=== PATIENT | female | born 1935 | race Caucasian/White ===

== ENCOUNTER 2017-12-03 12:43 | Inpatient (IN) | payer MEDICARE ==
[~2017-12-03] VITALS: Ht 152.4 cm; Wt 64.8 kg
--- NOTE | ~2017-12-03 | EC ---
PATIENT:HUNTER BURTON DATE OF SERVICE: 12/05/17 SEX: F MEDICAL RECORD: [id number] DATE OF : 35 LOCATION:D.M2 D.212 AGE OF PATIENT: 82 ADMISSION DATE: 12/05/17 REFERRING PHYSICIAN: INTERPRETING PHYSICIAN: CARMINA FERREIRA MD ECHOCARDIOGRAM REPORT ECHO CHARGES 4 ECHO COMPLETE Date: 12/05 CLINICAL DIAGNOSIS: HTN ECHOCARDIOGRAPHIC MEASUREMENTS (adult normal given) AC root (d.<3.7cm) 2.2 cm LV Septum d (<1.2 cm> 2.3 cm Valve Excursion 1.5 cm LV Septum (systole) 2.7 cm Left Atria (s.<4.0cm> 4.1 cm LVPW d(<1.2cm) 2.2 cm RV (d.<2.3cm) 3.6 cm LVPW (sytole) 2.3 cm LV diastole(<5.6CM) 3.2 cm MV E-F(>70mm/sec) cm LV systole 2.2 cm LVOT Diameter 1.2 cm MV exc.(>10mm) 1.6 cm Est.ejection fraction (50-75%) % DOPPLER: LVIT cm/sec A 109 cm/sec E 47.0 cm/sec LA cm/sec RVSP 24 mmHg LVOT 126 cm/sec AOP1/2T m/s Asc. Ao 352 cm/sec RVOT 108 cm/sec RA cm/sec PA 126 cm/sec AV Gradient Peak 49.52mmHg AV Mean 31.08mmHg AV Area 0.4 cm MV Gradient Peak 5.94 mmHg MV Mean 2.26 mmHg MV Area cm COMMENTS: Bmx Rider: Jaqueline TENORIO Motor Vehicle Emissions Inspector: 1 Dr. Ferreira TAPE# PACS Pericardial Effusion Y DATE OF SERVICE: PROCEDURE: Echocardiogram. FINDINGS: 1. Left ventricular chamber size is within normal limits. Left ventricular systolic function is normal. Overall ejection fraction estimated at 60%. 2. Left atrium, right atrium, and right ventricular chamber sizes are within normal limits. 3. Valvular structures have normal structure and motion. ECHOCARDIOGRAM REPORT [id number] HUNTER BURTON 4. Doppler interrogation reveals trace to mild mitral regurgitation, trace to mild tricuspid regurgitation, no other valvular insufficiency or stenosis. Pulmonary systolic pressure is normal estimated at 24 mmHg. 5. No evidence of pericardial effusion or left ventricular thrombus. TRANSINT:[id number] Voice Confirmation ID: [id number] DOCUMENT ID: [id number] CARMINA FERREIRA MD at 0851 CC: [id number] DICTATION DATE: 12/09/17 1053 FIRE PRODUCTION OPERATOR: 12/09/17 1143 DIS IN 12/08/17 [facility] [address] [id number]
[2017-12-03 13:44] LABS: BASOPHILS 0.6 % (0-2); HEMATOCRIT 37.5 % (36.0-48.0); IMMATURE GRANULOCYTES 0.4 % (0-5); LYMPHOCYTES 25.9 % (15-50); MCH 34.2 pg (26.0-34.0); MCV 106.8 fL (80.0-100.0); MEAN PLATELET VOLUME 10.8 fL (7.4-10.4); MONOCYTES 11.3 % (2-11); NEUTROPHILS 60.8 % (40-80); PLATELET COUNT 115 10x3/uL (130-400); RBC 3.51 10x6/uL (4.00-5.40); RDW 13.5 % (11.5-14.5); WBC 4.9 10x3/uL (4.8-10.8)
[2017-12-03 14:11] LABS: ALBUMIN 2.8 g/dL (3.4-5.0); ALKALINE PHOSPHATASE 55 U/L (46-116); ALT (SGPT) 20 U/L (10-68); BILIRUBIN - TOTAL 0.47 mg/dL (0.2-1.3); CALC OSMOLALITY 283 mosm/kg (275-300); CARBON DIOXIDE 25.1 mmol/L (21.0-32.0); CHLORIDE - SERUM 105 mmol/L (98-107); CREATININE - SERUM 0.7 mg/dL (0.6-1.3); GLUCOSE 112 mg/dL (74-106); POTASSIUM - SERUM 3.6 mmol/L (3.5-5.1); PROTEIN - SERUM 6.5 g/dL (6.4-8.2); SODIUM 141 mmol/L (136-145); UREA NITROGEN 18 mg/dL (7-18); eGFR NON AFRICAN AMERICAN 85 mL/min (90-120)
[2017-12-03 14:24] LABS: CKMB 0.4 U/L (0.0-3.6); CREATINE KINASE 42 UL (21-215); TROPONIN-I 0.048 ng/mL (0.000-0.060)
[2017-12-03 15:09] LABS: APPEARANCE CLEAR (CLEAR); BILIRUBIN NEGATIVE (NEGATIVE); COLOR YELLOW (YELLOW); GLUCOSE NEGATIVE (NEGATIVE); KETONE NEGATIVE (NEGATIVE); NITRITE NEGATIVE (NEGATIVE); PROTEIN NEGATIVE (NEGATIVE); SPECIFIC GRAVITY 1.025 (1.005-1.020)
[2017-12-03 17:38] LABS: CKMB 0.4 U/L (0.0-3.6); CREATINE KINASE 41 UL (21-215); TROPONIN-I 0.054 ng/mL (0.000-0.060)
[2017-12-04] VITALS (8 sets, daily range): BP systolic 127–155; BP diastolic 52–76; Ht 152.4 cm; Wt 64.8 kg
[2017-12-04] MEDS ORDERED: TRAZODONE HCL50 MG PO (05:14)
[2017-12-04] MEDS ORDERED: CELEXA10 MG PO (05:14)
[2017-12-04] MEDS ORDERED: LEVOTHYROXINE75 MCG PO (05:14)
[2017-12-04] MEDS ORDERED: PRAVACHOL40 MG PO (05:15)
[2017-12-04] MEDS ORDERED: DEPAKOTE SPRIN125 MG PO (05:15)
[2017-12-04] MEDS ORDERED: METFORMIN HCL500 M1 PO (05:15)
[2017-12-04] MEDS ORDERED: BENICAR20 MG PO (05:15)
[2017-12-04 05:16] LABS: BASOPHILS 0.2 % (0-2); EOSINOPHILS 0 % (0-7); HEMATOCRIT 36.5 % (36.0-48.0); HEMOGLOBIN 11.9 g/dL (12-16); IMMATURE GRANULOCYTES 0.2 % (0-5); LYMPHOCYTES 13.7 % (15-50); MCH 33.9 pg (26.0-34.0); MCHC 32.6 g/dL (31.0-37.0); MONOCYTES 10.7 % (2-11); NEUTROPHILS 75.2 % (40-80); RBC 3.51 10x6/uL (4.00-5.40); RDW 13.1 % (11.5-14.5)
[2017-12-04] MEDS ORDERED: TRILIPIX135 MG PO (05:16)
[2017-12-04] MEDS ORDERED: ASPIRIN325 MG PO (05:16)
[2017-12-04] MEDS ORDERED: SENNA LAXATIVE8.6 MG PO (05:17)
[2017-12-04] MEDS ORDERED: CRANBERRY 400 M1 TA1 PO (05:17)
[2017-12-04 05:18] LABS: PLATELET COUNT 139 10x3/uL (130-400)
[2017-12-04] MEDS ORDERED: MULTI-DAY VITAM1 TAB PO (05:18)
[2017-12-04] MEDS ORDERED: ACETAMINOPHEN500 M1 PO (05:19)
[2017-12-04] MEDS ORDERED: MYLANTA / MAALO30 ML PO (05:19)
[2017-12-04] MEDS ORDERED: MILK OF MAGNESI30 ML PO (05:20)
[2017-12-04] MEDS ORDERED: DULCOLAX5 MG PO (05:21)
[2017-12-04] MEDS ORDERED: TYLENOL650 MG RC (05:22)
[2017-12-04 05:54] LABS: CALC OSMOLALITY 281 mosm/kg (275-300); CALCIUM 8.9 mg/dL (8.5-10.1); CARBON DIOXIDE 23.6 mmol/L (21.0-32.0); CHLORIDE - SERUM 105 mmol/L (98-107); CKMB 1.1 U/L (0.0-3.6); GLUCOSE 149 mg/dL (74-106); POTASSIUM - SERUM 3.2 mmol/L (3.5-5.1); SODIUM 139 mmol/L (136-145); UREA NITROGEN 15 mg/dL (7-18)
[2017-12-04 06:19] LABS: CREATINE KINASE 340 UL (21-215); CREATININE - SERUM 0.9 mg/dL (0.6-1.3); eGFR NON AFRICAN AMERICAN 63 mL/min (90-120)
[2017-12-04 06:22] LABS: TROPONIN-I 0.139 ng/mL (0.000-0.060)
[2017-12-04 17:41] LABS: CKMB 1.2 U/L (0.0-3.6); CREATINE KINASE 636 UL (21-215); TROPONIN-I 0.213 ng/mL (0.000-0.060)
[2017-12-04 23:45] LABS: CKMB 1.2 U/L (0.0-3.6); CREATINE KINASE 532 UL (21-215)
[2017-12-04 23:46] LABS: TROPONIN-I 0.221 ng/mL (0.000-0.060)
[2017-12-05 04:00] VITALS: BP 171/77
[2017-12-05 05:04] LABS: BASOPHILS 0.9 % (0-2); EOSINOPHILS 0.4 % (0-7); HEMATOCRIT 38.1 % (36.0-48.0); HEMOGLOBIN 12.4 g/dL (12-16); IMMATURE GRANULOCYTES 0.2 % (0-5); LYMPHOCYTES 29.5 % (15-50); MCH 34.1 pg (26.0-34.0); MCHC 32.5 g/dL (31.0-37.0); MCV 104.7 fL (80.0-100.0); MEAN PLATELET VOLUME 10.8 fL (7.4-10.4); MONOCYTES 17.5 % (2-11); NEUTROPHILS 51.5 % (40-80); PLATELET COUNT 143 10x3/uL (130-400); RBC 3.64 10x6/uL (4.00-5.40); RDW 13.4 % (11.5-14.5); WBC 4.6 10x3/uL (4.8-10.8)
[2017-12-05 05:41] LABS: CARBON DIOXIDE 24.2 mmol/L (21.0-32.0); CHLORIDE - SERUM 106 mmol/L (98-107); CHOL - HDL RATIO 4.9 ratio (2.3-4.1); CHOLESTEROL, TOTAL 68 mg/dL (0-200); CREATINE KINASE 408 UL (21-215); CREATININE - SERUM 0.9 mg/dL (0.6-1.3); GLUCOSE 129 mg/dL (74-106); HDL CHOLESTEROL 14 mg/dL (32-96); LDL CHOLESTEROL 27 mg/dL (0-100); LDL-HDL RATIO 1.9 ratio (1.5-3.5); SODIUM 142 mmol/L (136-145); THYROID STIMULATING HORMONE 6.28 uIU/mL (0.36-3.74); TRIGLYCERIDE 135 mg/dL (30-200); eGFR NON AFRICAN AMERICAN 63 mL/min (90-120)
[2017-12-05 05:43] LABS: CALC OSMOLALITY 286 mosm/kg (275-300); POTASSIUM - SERUM 3.7 mmol/L (3.5-5.1); TROPONIN-I 0.182 ng/mL (0.000-0.060); UREA NITROGEN 19 mg/dL (7-18)
[2017-12-05 09:44] VITALS: BP 142/65
[2017-12-05 11:33] LABS: CKMB 0.9 U/L (0.0-3.6)
[2017-12-05 11:35] LABS: CREATINE KINASE 294 UL (21-215); TROPONIN-I 0.151 ng/mL (0.000-0.060)
[2017-12-05 13:07] VITALS: BP 121/58
[2017-12-05 16:20] VITALS: BP 138/51
[2017-12-05 20:00] VITALS: BP 94/46
[2017-12-05 21:21] VITALS: BP 94/46
[2017-12-06] VITALS: BP 123/51
[2017-12-06 04:00] VITALS: BP 133/60
[2017-12-06 06:09] LABS: BASOPHILS 0.1 % (0-2); EOSINOPHILS 0.3 % (0-7); HEMATOCRIT 35.9 % (36.0-48.0); HEMOGLOBIN 11.6 g/dL (12-16); IMMATURE GRANULOCYTES 0.2 % (0-5); LYMPHOCYTES 15.5 % (15-50); MCH 33.8 pg (26.0-34.0); MCHC 32.3 g/dL (31.0-37.0); MCV 104.7 fL (80.0-100.0); MEAN PLATELET VOLUME 10.5 fL (7.4-10.4); MONOCYTES 8.2 % (2-11); NEUTROPHILS 75.7 % (40-80); PLATELET COUNT 148 10x3/uL (130-400); RBC 3.43 10x6/uL (4.00-5.40); RDW 13.4 % (11.5-14.5)
[2017-12-06 06:13] LABS: WBC 9.1 10x3/uL (4.8-10.8)
[2017-12-06 06:18] LABS: CALCIUM 8.8 mg/dL (8.5-10.1); CARBON DIOXIDE 23.6 mmol/L (21.0-32.0); POTASSIUM - SERUM 3.6 mmol/L (3.5-5.1)
[2017-12-06 07:52] VITALS: BP 170/81
[2017-12-06 11:28] VITALS: BP 142/69
[2017-12-06 15:24] VITALS: BP 155/55
[2017-12-06 19:34] VITALS: BP 137/50
[2017-12-07] VITALS: BP 177/65
[2017-12-07 05:25] VITALS: BP 152/60
[2017-12-07 09:14] VITALS: BP 157/101
[2017-12-07] MEDS ORDERED: TOPROL XL25 MG PO (10:23)
[2017-12-07 12:23] VITALS: BP 154/63
[2017-12-07 16:39] VITALS: BP 151/82
[2017-12-08 05:48] VITALS: BP 171/71
[2017-12-08 08:38] VITALS: BP 181/70
[2017-12-08 11:16] VITALS: BP 155/76
[2017-12-08] MEDS ORDERED: LOPRESSOR25 MG PO ×2 (11:27→11:32)
[2017-12-08] MEDS ORDERED: BENICAR20 MG PO (11:32)
[2017-12-08] MEDS ORDERED: TRICOR145 MG PO (11:32)
[2017-12-08] MEDS ORDERED: PRAVACHOL20 MG PO (11:32)
== END 2017-12-08 12:35 | DRG 67 ==
LOC: D.ER 12:43 → D.M2 16:48 → OBSVTIME 16:48 → D.EDHOLD 16:48 → D.M2 20:11
PROVIDERS: Family Medicine; Internal Medicine Nephrology
DX: I65.21 Occlusion and stenosis of right carotid artery (principal); I21.4 Non-ST elevation (NSTEMI) myocardial infarction; I69.354 Hemiplegia and hemiparesis following cerebral infarction affecting left non-dominant side; F03.91 Unspecified dementia, unspecified severity, with behavioral disturbance; E87.6 Hypokalemia; E11.9 Type 2 diabetes mellitus without complications; I69.391 Dysphagia following cerebral infarction; R13.10 Dysphagia, unspecified; E78.5 Hyperlipidemia, unspecified; I10 Essential (primary) hypertension

== ENCOUNTER 2017-12-14 11:28 | Inpatient (IN) | payer MEDICARE ==
[~2017-12-14] VITALS: Ht 152.4 cm; Wt 64.9 kg
[~2017-12-14 11:28] MED LIST: ACETAMINOPHEN500 M1 PO; ASPIRIN325 MG PO; BENICAR20 MG PO; CELEXA10 MG PO; CRANBERRY 400 M1 TA1 PO; DEPAKOTE SPRIN125 MG PO; DULCOLAX5 MG PO; LEVOTHYROXINE75 MCG PO; LOPRESSOR25 MG PO; METFORMIN HCL500 M1 PO; MILK OF MAGNESI30 ML PO; MULTI-DAY VITAM1 TAB PO; MYLANTA / MAALO30 ML PO; PRAVACHOL20 MG PO; PRAVACHOL40 MG PO; SENNA LAXATIVE8.6 MG PO; TOPROL XL25 MG PO; TRAZODONE HCL50 MG PO; TRICOR145 MG PO; TRILIPIX135 MG PO; TYLENOL650 MG RC
[2017-12-14 12:18] LABS: BASOPHILS 0 % (0-2); EOSINOPHILS 0 % (0-7); HEMATOCRIT 51.3 % (36.0-48.0); HEMOGLOBIN 15.3 g/dL (12-16); IMMATURE GRANULOCYTES 0.5 % (0-5); LYMPHOCYTES 5.8 % (15-50); MCH 34.4 pg (26.0-34.0); MCHC 29.8 g/dL (31.0-37.0); MCV 115.3 fL (80.0-100.0); MEAN PLATELET VOLUME 12.4 fL (7.4-10.4); MONOCYTES 2.4 % (2-11); NEUTROPHILS 91.3 % (40-80); PLATELET COUNT 164 10x3/uL (130-400); RBC 4.45 10x6/uL (4.00-5.40); RDW 13.8 % (11.5-14.5); WBC 11.9 10x3/uL (4.8-10.8)
[2017-12-14 12:23] LABS: KETONE - SERUM NEGATIVE (NEGATIVE)
[2017-12-14 12:46] LABS: ALKALINE PHOSPHATASE 67 U/L (46-116); ALT (SGPT) 19 U/L (10-68); CALCIUM 9.8 mg/dL (8.5-10.1); CARBON DIOXIDE 28.8 mmol/L (21.0-32.0); CREATININE - SERUM 1.9 mg/dL (0.6-1.3); POTASSIUM - SERUM 4.3 mmol/L (3.5-5.1); PROTEIN - SERUM 6.9 g/dL (6.4-8.2); SODIUM 157 mmol/L (136-145); UREA NITROGEN 61 mg/dL (7-18); eGFR NON AFRICAN AMERICAN 27 mL/min (90-120)
[2017-12-14 12:51] LABS: CALC OSMOLALITY 360 mosm/kg (275-300); CHLORIDE - SERUM 121 mmol/L (98-107); GLUCOSE 684 mg/dL (74-106); TROPONIN-I 0.265 ng/mL (0.000-0.060)
[2017-12-14 14:31] LABS: APPEARANCE HAZY (CLEAR); COLOR YELLOW (YELLOW); NITRITE POSITIVE (NEGATIVE); PROTEIN NEGATIVE (NEGATIVE); SPECIFIC GRAVITY 1.015 (1.005-1.020)
[2017-12-14 14:32] LABS: BILIRUBIN NEGATIVE (NEGATIVE); GLUCOSE 1000 mg/dL (NEGATIVE); KETONE NEGATIVE (NEGATIVE); UROBILINOGEN NORMAL (NORMAL)
[2017-12-14 14:34] LABS: AMORPHOUS SEDIMENT <1+ /lpf (NONE SEEN); BACTERIA MANY /hpf (NONE SEEN); RED CELLS - URINE 0-5 /hpf (0-5); WHITE CELLS - URINE 0-5 /hpf (0-5)
[2017-12-14 16:20] LABS: UDS - AMPHET NEGATIVE QUAL (NEGATIVE); UDS - BARB NEGATIVE QUAL (NEGATIVE); UDS - BENZO NEGATIVE QUAL (NEGATIVE); UDS - COCAINE NEGATIVE QUAL (NEGATIVE); UDS - OPIATE NEGATIVE QUAL (NEGATIVE); UDS - PCP NEGATIVE QUAL (NEGATIVE); UDS - THC NEGATIVE QUAL (NEGATIVE)
[2017-12-15 04:00] VITALS: BP 149/58
[2017-12-15 04:12] VITALS: BP 109/36; BMI 27.9
[2017-12-15 06:30] LABS: BASOPHILS 0.1 % (0-2); EOSINOPHILS 0.2 % (0-7); IMMATURE GRANULOCYTES 0.6 % (0-5); MCH 34.1 pg (26.0-34.0); MCHC 30.4 g/dL (31.0-37.0); MEAN PLATELET VOLUME 11.7 fL (7.4-10.4); MONOCYTES 3.8 % (2-11); NEUTROPHILS 88.3 % (40-80); RDW 13.6 % (11.5-14.5)
[2017-12-15 06:32] LABS: HEMATOCRIT 39.8 % (36.0-48.0); HEMOGLOBIN 12.1 g/dL (12-16); MCV 112.1 fL (80.0-100.0); PLATELET COUNT 214 10x3/uL (130-400); RBC 3.55 10x6/uL (4.00-5.40); WBC 17.9 10x3/uL (4.8-10.8)
[2017-12-15 06:39] LABS: INR 1.37 (0.85-1.17); PROTIME 16.4 SECONDS (11.6-15.0)
[2017-12-15 06:59] LABS: ALBUMIN 1.9 g/dL (3.4-5.0); BILIRUBIN - TOTAL 0.5 mg/dL (0.2-1.3); CALCIUM 9.2 mg/dL (8.5-10.1); CARBON DIOXIDE 31.4 mmol/L (21.0-32.0); CREATININE - SERUM 1.4 mg/dL (0.6-1.3); MAGNESIUM - SERUM 1.5 mg/dL (1.8-2.4); PHOSPHOROUS 1.7 mg/dL (2.5-4.9); PROTEIN - SERUM 6.7 g/dL (6.4-8.2)
[2017-12-15 07:00] LABS: ANION GAP 9.9 mmol/L (8-16); POTASSIUM - SERUM 3.3 mmol/L (3.5-5.1); TROPONIN-I 0.289 ng/mL (0.000-0.060)
[2017-12-15 09:27] VITALS: BP 142/71
[2017-12-15 13:40] VITALS: BP 136/54
[2017-12-15 20:00] VITALS: BP 130/54
[2017-12-16 05:41] LABS: BASOPHILS 0.1 % (0-2); EOSINOPHILS 0.1 % (0-7); HEMATOCRIT 32.8 % (36.0-48.0); IMMATURE GRANULOCYTES 0.6 % (0-5); LYMPHOCYTES 8.5 % (15-50); MCH 33.8 pg (26.0-34.0); MCHC 30.5 g/dL (31.0-37.0); MCV 110.8 fL (80.0-100.0); MEAN PLATELET VOLUME 12.5 fL (7.4-10.4); NEUTROPHILS 87.7 % (40-80); RBC 2.96 10x6/uL (4.00-5.40); RDW 13.8 % (11.5-14.5)
[2017-12-16 05:45] LABS: PLATELET COUNT 154 10x3/uL (130-400); WBC 11.5 10x3/uL (4.8-10.8)
[2017-12-16 06:27] LABS: ALBUMIN 1.5 g/dL (3.4-5.0); BILIRUBIN - TOTAL 0.7 mg/dL (0.2-1.3); CALCIUM 8.2 mg/dL (8.5-10.1); CARBON DIOXIDE 25.6 mmol/L (21.0-32.0); CREATININE - SERUM 1.3 mg/dL (0.6-1.3); MAGNESIUM - SERUM 1.8 mg/dL (1.8-2.4); POTASSIUM - SERUM 3.3 mmol/L (3.5-5.1); PROTEIN - SERUM 5.6 g/dL (6.4-8.2)
[2017-12-16 06:40] LABS: ANION GAP 14.7 mmol/L (8-16)
[2017-12-16 06:42] LABS: TROPONIN-I 0.329 ng/mL (0.000-0.060)
[2017-12-16 06:48] LABS: C-REACTIVE PROTEIN 25.6 mg/dL (0.0-0.9)
[2017-12-16 07:12] LABS: PROTIME 19.1 SECONDS (11.6-15.0)
[2017-12-16 07:13] LABS: INR 1.66 (0.85-1.17)
[2017-12-16 09:23] VITALS: BP 159/68
[2017-12-16 14:40] VITALS: Ht 152.4 cm; Wt 64.9 kg
[2017-12-16 14:42] VITALS: BP 155/62
[2017-12-16 17:59] VITALS: BP 145/72
[2017-12-16 21:36] VITALS: BP 126/51
[2017-12-17 04:54] VITALS: BP 107/65
[2017-12-17 06:07] LABS: BASOPHILS 0.1 % (0-2); EOSINOPHILS 0.7 % (0-7); HEMATOCRIT 33.8 % (36.0-48.0); HEMOGLOBIN 10.2 g/dL (12-16); IMMATURE GRANULOCYTES 0.8 % (0-5); LYMPHOCYTES 14.2 % (15-50); MCH 33.2 pg (26.0-34.0); MCHC 30.2 g/dL (31.0-37.0); MCV 110.1 fL (80.0-100.0); MEAN PLATELET VOLUME 12.3 fL (7.4-10.4); MONOCYTES 3.3 % (2-11); NEUTROPHILS 80.9 % (40-80); PLATELET COUNT 145 10x3/uL (130-400); RBC 3.07 10x6/uL (4.00-5.40); RDW 13.6 % (11.5-14.5)
[2017-12-17 06:50] LABS: ALBUMIN 1.4 g/dL (3.4-5.0); ANION GAP 12.5 mmol/L (8-16); BILIRUBIN - TOTAL 0.61 mg/dL (0.2-1.3); CALCIUM 8.5 mg/dL (8.5-10.1); CARBON DIOXIDE 26.2 mmol/L (21.0-32.0); CREATININE - SERUM 1.1 mg/dL (0.6-1.3); POTASSIUM - SERUM 3.7 mmol/L (3.5-5.1); PROTEIN - SERUM 5.6 g/dL (6.4-8.2)
[2017-12-17 08:14] VITALS: BP 114/91
[2017-12-17 12:39] VITALS: BP 106/43
[2017-12-17 16:15] VITALS: BP 123/44
[2017-12-17 20:06] VITALS: BP 114/50
[2017-12-18 04:30] VITALS: BP 122/57
[2017-12-18 06:18] LABS: BASOPHILS 0.1 % (0-2); EOSINOPHILS 0.5 % (0-7); HEMATOCRIT 35.8 % (36.0-48.0); IMMATURE GRANULOCYTES 0.8 % (0-5); LYMPHOCYTES 15.2 % (15-50); MCH 33.3 pg (26.0-34.0); MCHC 30.7 g/dL (31.0-37.0); MCV 108.5 fL (80.0-100.0); MEAN PLATELET VOLUME 12.3 fL (7.4-10.4); MONOCYTES 4.3 % (2-11); NEUTROPHILS 79.1 % (40-80); PLATELET COUNT 155 10x3/uL (130-400); RDW 13.4 % (11.5-14.5); WBC 8.7 10x3/uL (4.8-10.8)
[2017-12-18 06:49] LABS: ALBUMIN 1.5 g/dL (3.4-5.0); ANION GAP 14.7 mmol/L (8-16); BILIRUBIN - TOTAL 0.68 mg/dL (0.2-1.3); CALCIUM 8.2 mg/dL (8.5-10.1); CARBON DIOXIDE 22.2 mmol/L (21.0-32.0); CREATININE - SERUM 1.1 mg/dL (0.6-1.3); POTASSIUM - SERUM 3.9 mmol/L (3.5-5.1); PROTEIN - SERUM 5.9 g/dL (6.4-8.2)
[2017-12-18 13:32] VITALS: BP 111/24
[2017-12-18 20:07] VITALS: BP 137/78
[2017-12-19 04:25] VITALS: BP 127/67
[2017-12-19 06:20] LABS: BASOPHILS 0.2 % (0-2); EOSINOPHILS 2.1 % (0-7); HEMATOCRIT 33.5 % (36.0-48.0); HEMOGLOBIN 10.5 g/dL (12-16); IMMATURE GRANULOCYTES 0.5 % (0-5); MCH 33.4 pg (26.0-34.0); MCHC 31.3 g/dL (31.0-37.0); MCV 106.7 fL (80.0-100.0); MEAN PLATELET VOLUME 12.4 fL (7.4-10.4); MONOCYTES 4.9 % (2-11); NEUTROPHILS 82.3 % (40-80); PLATELET COUNT 152 10x3/uL (130-400); RBC 3.14 10x6/uL (4.00-5.40); RDW 13.4 % (11.5-14.5)
[2017-12-19 06:46] LABS: ALBUMIN 1.4 g/dL (3.4-5.0); ANION GAP 11.1 mmol/L (8-16); BILIRUBIN - TOTAL 0.41 mg/dL (0.2-1.3); CALCIUM 8.2 mg/dL (8.5-10.1); POTASSIUM - SERUM 4.1 mmol/L (3.5-5.1); PROTEIN - SERUM 5.4 g/dL (6.4-8.2); WBC 11.3 10x3/uL (4.8-10.8)
[2017-12-19 06:56] LABS: CREATININE - SERUM 1.4 mg/dL (0.6-1.3)
[2017-12-19 08:59] VITALS: BP 136/34
[2017-12-19 12:48] VITALS: BP 109/25
[2017-12-19 16:15] VITALS: BP 106/65
[2017-12-19 19:11] LABS: AEROBE ID Final report (())
[2017-12-19 19:56] VITALS: BP 110/65
[2017-12-19 23:00] LABS: APPEARANCE HAZY (CLEAR); BACTERIA NONE SEEN /hpf (NONE SEEN); BILIRUBIN NEGATIVE (NEGATIVE); COLOR DK YELLOW (YELLOW); EPITHELIAL CELLS NSEEN /hpf (0-5); GLUCOSE 50 mg/dL (NEGATIVE); KETONE SMALL mg/dL (NEGATIVE); NITRITE NEGATIVE (NEGATIVE); PROTEIN TRACE mg/dL (NEGATIVE); SPECIFIC GRAVITY 1.015 (1.005-1.020); UROBILINOGEN NORMAL (NORMAL); WHITE CELLS - URINE RARE /hpf (0-5)
[2017-12-19 23:01] LABS: AMORPHOUS SEDIMENT <1+ /lpf (NONE SEEN); GRANULAR CAST 0-5 /lpf (NONE SEEN)
[2017-12-20 04:30] VITALS: BP 144/67
[2017-12-20 06:49] LABS: BASOPHILS 0.1 % (0-2); HEMATOCRIT 30.7 % (36.0-48.0); HEMOGLOBIN 9.6 g/dL (12-16); IMMATURE GRANULOCYTES 0.8 % (0-5); LYMPHOCYTES 11.9 % (15-50); MCH 33.4 pg (26.0-34.0); MCHC 31.3 g/dL (31.0-37.0); MEAN PLATELET VOLUME 12.3 fL (7.4-10.4); NEUTROPHILS 80.2 % (40-80); PLATELET COUNT 137 10x3/uL (130-400); RBC 2.87 10x6/uL (4.00-5.40); RDW 13.1 % (11.5-14.5); WBC 10.9 10x3/uL (4.8-10.8)
[2017-12-20 07:20] LABS: ALBUMIN 1.3 g/dL (3.4-5.0); ANION GAP 10.2 mmol/L (8-16); BILIRUBIN - TOTAL 0.24 mg/dL (0.2-1.3); CALCIUM 8.2 mg/dL (8.5-10.1); CARBON DIOXIDE 25.2 mmol/L (21.0-32.0); CREATININE - SERUM 1.2 mg/dL (0.6-1.3); POTASSIUM - SERUM 4.4 mmol/L (3.5-5.1); PROTEIN - SERUM 4.5 g/dL (6.4-8.2)
[2017-12-20 09:52] VITALS: BP 132/48
[2017-12-20 13:27] VITALS: BP 148/54; BP 90/44
[2017-12-20 14:27] LABS: AEROBE ID Final report (()); RESULT 1 Aerococcus urinae (())
[2017-12-20 18:09] VITALS: BP 101/53
[2017-12-20 20:00] VITALS: BP 104/55
[2017-12-21 01:00] VITALS: BP 110/54
[2017-12-21 04:00] VITALS: BP 179/71
[2017-12-21 06:41] LABS: BASOPHILS 0.1 % (0-2); EOSINOPHILS 1.9 % (0-7); HEMOGLOBIN 10.3 g/dL (12-16); IMMATURE GRANULOCYTES 1.1 % (0-5); MCH 33.9 pg (26.0-34.0); MCHC 32.2 g/dL (31.0-37.0); MCV 105.3 fL (80.0-100.0); MEAN PLATELET VOLUME 12.7 fL (7.4-10.4); MONOCYTES 5.6 % (2-11); NEUTROPHILS 81.3 % (40-80); RBC 3.04 10x6/uL (4.00-5.40)
[2017-12-21 06:47] LABS: PLATELET COUNT 191 10x3/uL (130-400); WBC 13.7 10x3/uL (4.8-10.8)
[2017-12-21 06:57] LABS: ALBUMIN 1.5 g/dL (3.4-5.0); ANION GAP 10.2 mmol/L (8-16); BILIRUBIN - TOTAL 0.36 mg/dL (0.2-1.3); CALCIUM 8.4 mg/dL (8.5-10.1); CARBON DIOXIDE 24.9 mmol/L (21.0-32.0); CREATININE - SERUM 0.9 mg/dL (0.6-1.3); POTASSIUM - SERUM 4.1 mmol/L (3.5-5.1); PROTEIN - SERUM 5.5 g/dL (6.4-8.2)
[2017-12-21 08:53] VITALS: BP 116/66
[2017-12-21 11:43] VITALS: BP 122/62
[2017-12-21 15:17] VITALS: BP 141/56
[2017-12-21 20:00] VITALS: BP 156/71
[2017-12-22] VITALS: BP 112/58
[2017-12-22 04:00] VITALS: BP 135/60
[2017-12-22 05:43] LABS: BASOPHILS 0.3 % (0-2); EOSINOPHILS 1.3 % (0-7); HEMATOCRIT 30.7 % (36.0-48.0); HEMOGLOBIN 9.8 g/dL (12-16); IMMATURE GRANULOCYTES 1.6 % (0-5); LYMPHOCYTES 14.6 % (15-50); MCH 33.7 pg (26.0-34.0); MCHC 31.9 g/dL (31.0-37.0); MCV 105.5 fL (80.0-100.0); MEAN PLATELET VOLUME 12.4 fL (7.4-10.4); MONOCYTES 6.4 % (2-11); NEUTROPHILS 75.8 % (40-80); PLATELET COUNT 208 10x3/uL (130-400); RBC 2.91 10x6/uL (4.00-5.40); RDW 13.1 % (11.5-14.5); WBC 10.5 10x3/uL (4.8-10.8)
[2017-12-22 06:30] LABS: ALBUMIN 1.5 g/dL (3.4-5.0); BILIRUBIN - TOTAL 0.31 mg/dL (0.2-1.3); CALCIUM 7.9 mg/dL (8.5-10.1); CARBON DIOXIDE 24.3 mmol/L (21.0-32.0); CREATININE - SERUM 0.9 mg/dL (0.6-1.3); POTASSIUM - SERUM 4.3 mmol/L (3.5-5.1); PROTEIN - SERUM 4.8 g/dL (6.4-8.2)
[2017-12-22 08:44] VITALS: BP 126/56
[2017-12-22 11:42] VITALS: BP 118/46
[2017-12-22 15:23] VITALS: BP 100/46
[2017-12-22 20:00] VITALS: BP 101/48
[2017-12-23] VITALS: BP 124/61
[2017-12-23 04:00] VITALS: BP 134/67
[2017-12-23 06:17] LABS: BASOPHILS 0.4 % (0-2); EOSINOPHILS 2.2 % (0-7); HEMOGLOBIN 10.1 g/dL (12-16); IMMATURE GRANULOCYTES 3.1 % (0-5); MCH 34.1 pg (26.0-34.0); MCHC 32.6 g/dL (31.0-37.0); MCV 104.7 fL (80.0-100.0); MEAN PLATELET VOLUME 12.3 fL (7.4-10.4); MONOCYTES 6.8 % (2-11); NEUTROPHILS 67.5 % (40-80); PLATELET COUNT 228 10x3/uL (130-400); RBC 2.96 10x6/uL (4.00-5.40); RDW 13.8 % (11.5-14.5); WBC 8.1 10x3/uL (4.8-10.8)
[2017-12-23 06:35] LABS: ALBUMIN 1.5 g/dL (3.4-5.0); ANION GAP 12.2 mmol/L (8-16); BILIRUBIN - TOTAL 0.19 mg/dL (0.2-1.3); CALCIUM 7.8 mg/dL (8.5-10.1); CARBON DIOXIDE 25.1 mmol/L (21.0-32.0); CREATININE - SERUM 0.9 mg/dL (0.6-1.3); POTASSIUM - SERUM 4.3 mmol/L (3.5-5.1)
[2017-12-23 08:19] VITALS: BP 136/61
[2017-12-23] MEDS ORDERED: HUMULIN R100 U/ML SC (11:08)
[2017-12-23] MEDS ORDERED: OMNICEF300 MG PO (11:11)
[2017-12-23] MEDS ORDERED: FLORAJEN3 CAPS460 MG PO (11:12)
[2017-12-23 12:00] VITALS: BP 123/55
[2017-12-23 15:00] VITALS: BP 112/47
[2017-12-23 20:50] VITALS: BP 131/62
[2017-12-24 01:02] VITALS: BP 131/55
[2017-12-24 05:28] LABS: BASOPHILS 0.4 % (0-2); EOSINOPHILS 2.4 % (0-7); HEMATOCRIT 32.2 % (36.0-48.0); HEMOGLOBIN 10.5 g/dL (12-16); IMMATURE GRANULOCYTES 1.9 % (0-5); LYMPHOCYTES 16.1 % (15-50); MCH 34.1 pg (26.0-34.0); MCHC 32.6 g/dL (31.0-37.0); MCV 104.5 fL (80.0-100.0); MEAN PLATELET VOLUME 11.8 fL (7.4-10.4); NEUTROPHILS 70.2 % (40-80); PLATELET COUNT 259 10x3/uL (130-400); RBC 3.08 10x6/uL (4.00-5.40); RDW 14.1 % (11.5-14.5); WBC 7.4 10x3/uL (4.8-10.8)
[2017-12-24 05:30] VITALS: BP 134/63
[2017-12-24 05:44] LABS: ALBUMIN 1.5 g/dL (3.4-5.0); ALKALINE PHOSPHATASE 44 U/L (46-116); ALT (SGPT) 16 U/L (10-68); BILIRUBIN - TOTAL 0.25 mg/dL (0.2-1.3); CALC OSMOLALITY 284 mosm/kg (275-300); CALCIUM 7.8 mg/dL (8.5-10.1); CARBON DIOXIDE 27.5 mmol/L (21.0-32.0); CHLORIDE - SERUM 105 mmol/L (98-107); CREATININE - SERUM 0.7 mg/dL (0.6-1.3); GLUCOSE 136 mg/dL (74-106); PROTEIN - SERUM 5.4 g/dL (6.4-8.2); SODIUM 141 mmol/L (136-145); UREA NITROGEN 17 mg/dL (7-18); eGFR NON AFRICAN AMERICAN 85 mL/min (90-120)
[2017-12-24 07:43] VITALS: BP 128/66
== END 2017-12-24 12:35 | DRG 871 ==
LOC: D.ER 11:28 → OBSVTIME 16:13 → D.EDHOLD 16:13 → D.MS 17:34 → D.M2 12-20 20:45
PROVIDERS: Emergency Medicine; Family Medicine; Internal Medicine Nephrology
DX: A41.9 Sepsis, unspecified organism (principal); G93.41 Metabolic encephalopathy; I50.21 Acute systolic (congestive) heart failure; I21.4 Non-ST elevation (NSTEMI) myocardial infarction; E43 Unspecified severe protein-calorie malnutrition; E87.0 Hyperosmolality and hypernatremia; I69.354 Hemiplegia and hemiparesis following cerebral infarction affecting left non-dominant side; N39.0 Urinary tract infection, site not specified; N17.9 Acute kidney failure, unspecified; Z66 Do not resuscitate; E86.0 Dehydration; I10 Essential (primary) hypertension; E78.5 Hyperlipidemia, unspecified; F03.90 Unspecified dementia, unspecified severity, without behavioral disturbance, psychotic disturbance, mood disturbance, and anxiety; R13.10 Dysphagia, unspecified; E11.65 Type 2 diabetes mellitus with hyperglycemia

== ENCOUNTER 2018-10-05 21:07 | Emergency (ER) | payer MEDICARE ==
[~2018-10-05] VITALS: Ht 152.4 cm; Wt 51.7 kg
[~2018-10-05 21:07] MED LIST changes: +FLORAJEN3 CAPS460 MG PO; +HUMULIN R100 U/ML SC; +OMNICEF300 MG PO
[2018-10-05 21:18] VITALS: Ht 152.4 cm; Wt 51.7 kg
[2018-10-05 22:48] LABS: BASOPHILS 0.3 % (0-2); EOSINOPHILS 0.9 % (0-7); HEMATOCRIT 35.5 % (36.0-48.0); HEMOGLOBIN 11.6 g/dL (12-16); IMMATURE GRANULOCYTES 0.6 % (0-5); LYMPHOCYTES 28.2 % (15-50); MCH 35.7 pg (26.0-34.0); MCHC 32.7 g/dL (31.0-37.0); MCV 109.2 fL (80.0-100.0); MEAN PLATELET VOLUME 10.6 fL (7.4-10.4); MONOCYTES 10.2 % (2-11); NEUTROPHILS 59.8 % (40-80); RBC 3.25 10x6/uL (4.00-5.40); RDW 13.3 % (11.5-14.5); WBC 6.9 10x3/uL (4.8-10.8)
[2018-10-05 22:56] LABS: PLATELET COUNT 191 10x3/uL (130-400)
[2018-10-05 23:11] LABS: ALBUMIN 2.1 g/dL (3.4-5.0); ALKALINE PHOSPHATASE 74 U/L (46-116); ALT (SGPT) 12 U/L (10-68); BILIRUBIN - TOTAL 0.57 mg/dL (0.2-1.3); CALC OSMOLALITY 279 mosm/kg (275-300); CARBON DIOXIDE 28.3 mmol/L (21.0-32.0); CHLORIDE - SERUM 104 mmol/L (98-107); CREATINE KINASE 37 UL (21-215); CREATININE - SERUM 0.8 mg/dL (0.6-1.3); GLUCOSE 104 mg/dL (74-106); PRO BNP 8623 pg/mL (0-450); PROTEIN - SERUM 6.7 g/dL (6.4-8.2); SODIUM 139 mmol/L (136-145); THYROID STIMULATING HORMONE 1.29 uIU/mL (0.36-3.74); UREA NITROGEN 19 mg/dL (7-18); eGFR NON AFRICAN AMERICAN 72 mL/min (90-120)
[2018-10-05 23:11] LABS: UDS - AMPHET NEGATIVE QUAL (NEGATIVE); UDS - BARB NEGATIVE QUAL (NEGATIVE); UDS - BENZO NEGATIVE QUAL (NEGATIVE); UDS - COCAINE NEGATIVE QUAL (NEGATIVE); UDS - OPIATE NEGATIVE QUAL (NEGATIVE); UDS - PCP NEGATIVE QUAL (NEGATIVE); UDS - THC NEGATIVE QUAL (NEGATIVE)
[2018-10-05 23:14] LABS: LIPASE 47 U/L (73-393); TROPONIN-I < 0.017 ng/mL (0.000-0.060)
[2018-10-05 23:17] LABS: APPEARANCE CLEAR (CLEAR); BILIRUBIN NEGATIVE (NEGATIVE); COLOR YELLOW (YELLOW); GLUCOSE NEGATIVE (NEGATIVE); KETONE NEGATIVE (NEGATIVE); NITRITE NEGATIVE (NEGATIVE); PROTEIN NEGATIVE (NEGATIVE); UROBILINOGEN NORMAL (NORMAL)
[2018-10-05 23:18] LABS: BACTERIA NONE SEEN /hpf (NONE SEEN); EPITHELIAL CELLS 0-5 /hpf (0-5); RED CELLS - URINE 0-5 /hpf (0-5)
[2018-10-05] MEDS ORDERED: LEVOFLOXACIN500 MG PO (23:32)
[2018-10-06 02:11] VITALS: BP 125/58
== END 2018-10-06 02:12 ==
LOC: D.ER 21:07
PROVIDERS: Family Medicine
DX: R41.82 Altered mental status, unspecified (principal); N39.0 Urinary tract infection, site not specified